=== PATIENT | female | born 1965 | race Caucasian/White ===

== ENCOUNTER 2022-02-19 01:37 | Emergency (ER) | payer OTHER ==
[~2022-02-19] VITALS: Ht 172.7 cm; Wt 70.3 kg
--- NOTE | 2022-02-19 01:55 | NUR ---
BIBS C/O BACK PAIN AND SPASM X 1 DAY. PLACED COMFORTABLY IN BED. VITALS CHECKED.
--- NOTE | 2022-02-19 02:00 | NUR ---
PATIENT CHOSE TO [employer] THE ROOM INSTEAD OF LYING IN BED. IT HELPS LESSEN THE PAIN.
[2022-02-19] MEDS ORDERED: LIDOCAINE 5% (PATCH) 1 EA PATCH TP ONE (02:25)
[2022-02-19] MEDS ORDERED: KETOROLAC TROMETHAMINE INJ 60 MG/2 ML VIAL IM ONE (02:30)
[2022-02-19] MEDS ORDERED: LIDOCAINE 5% (PATCH) 1 EA PATCH TP SCH (02:30)
[2022-02-19] MEDS ORDERED: CYCLOBENZAPRINE 10 MG TABLET ONE (02:30)
[2022-02-19] MEDS ORDERED: CYCLOBENZAPRINE 10 MG TABLET PO ONE (02:30)
[2022-02-19] MEDS ORDERED: KETOROLAC TROMETHAMINE INJ 30 MG/ML VIAL ONE (02:30)
[2022-02-19] MEDS ORDERED: CYCL10TA9 PO (03:27)
[2022-02-19] MEDS ORDERED: NAPR-1164 PO (03:27)
[2022-02-19] MEDS ORDERED: LIDO1ADH82 TP (03:27)
--- NOTE | 2022-02-19 03:35 | NUR ---
DPatient discharged to home in stable condition. Written and verbal after care instructions given. Patient verbalizes understanding of instruction.
[2022-02-19 03:37] VITALS: BP 119/71
== END 2022-02-19 03:37 | disposition home or self-care (01) ==
LOC: ER 01:49
DX: G89.29 Other chronic pain (principal); M54.50 Low back pain, unspecified; Z79.899 Other long term (current) drug therapy
CPT/HCPCS: 96372; 99283; J1885